=== PATIENT | female | born 1950 | race Two or more races ===

== ENCOUNTER 2017-11-28 12:50 | Emergency (ER) | payer OTHER ==
[~2017-11-28] VITALS: Ht 162.6 cm; Wt 70.3 kg
[~2017-11-28 12:50] MED LIST: ASA81 MG; TOPROL XL25 M1; TOPROL XL25 M1 PO; XARELTO20 MG PO
== END 2017-11-28 15:36 | disposition home or self-care (01) ==
LOC: ER 12:50
DX: I10 Essential (primary) hypertension (principal)

== ENCOUNTER 2018-09-21 05:13 | Day surgery (SDC) | payer OTHER ==
[~2018-09-21 05:13] MED LIST changes: +Xarelto
== END 2018-09-21 12:54 | disposition home or self-care (01) ==
LOC: CIR.AMB 05:13
DX: K80.10 Calculus of gallbladder with chronic cholecystitis without obstruction (principal)